=== PATIENT | female | born 2000 | race American Indian/Alaskan Native ===

== ENCOUNTER 2020-08-19 12:16 | Emergency (ER) | payer SELFPAY ==
[2020-08-19] MEDS ORDERED: SODIUM CHLORIDE 0.9% 1000 ML 1,000 ML IV ONE (12:46)
--- NOTE | 2020-08-19 12:50 | Emergency Department Report ---
ED Psych HPI - General Chief Complaint: Medical Clearance Stated Complaint: DECREASED APPETITE Time Seen by Provider: 08/19/20 12:43 Source: patient Mode of arrival: Stretcher Limitations: Altered Mental Status - History of Present Illness Initial Comments: Chief complaint: Refusing to eat HPI this is a 20-year-old female with history of psychosis who presents with sitter from [facility]. Patient refuses to eat or take medication for the last 3 to 4 days. Patient does not cooperate with history taking. However sitter at the bedside was able to give history. Patient refused Ensure medication. MD Complaint: altered mental status, other (Refusing to eat) -: Gradual, days(s) (3 to 4 days prior) Associated Psychiatric Symptoms: other (Altered behavior) Quality: constant Improves With: none Worsens With: none Context: other (Currently being treated at [facility]) - Related Data Allergies Allergy/AdvReac Type Severity Reaction Status Date / Time No Known Allergies Allergy Unverified 08/19/20 12:32 ED Review of Systems ROS: Stated complaint: DECREASED APPETITE Other details as noted in HPI Comment: Unobtainable due to pts medical conditions (Patient would not cooperate) ED Past Medical Hx - Past Medical History Previous Medical History?: Yes Additional medical history: unspecified psychosis - Surgical History Past Surgical History?: No - Family History Family history: other (Unable to obtain) - Social History Smoking Status: Unknown if ever smoked Substance Use Type: Other (Unable to obtain) ED Physical Exam - General Limitations: No Limitations General appearance: alert, in no apparent distress, other (Mumbling poor eye contact) - Head Head exam: Present: atraumatic, normocephalic - Eye Eye exam: Present: normal appearance - ENT ENT exam: Present: mucous membranes dry - Neck Neck exam: Present: normal inspection, full ROM - Respiratory Respiratory exam: Present: normal lung sounds bilaterally. Absent: respiratory distress, wheezes, rales, rhonchi - Cardiovascular Cardiovascular Exam: Present: regular rate, normal rhythm, normal heart sounds. Absent: systolic murmur, diastolic murmur, rubs, gallop - GI/Abdominal GI/Abdominal exam: Present: soft, normal bowel sounds. Absent: distended, tend erness, guarding, rebound - Extremities Exam Extremities exam: Present: normal inspection - Neurological Exam Neurological exam: Present: altered - Psychiatric Psychiatric exam: Present: depressed, flat affect - Skin Skin exam: Present: warm, dry, intact, normal color. Absent: rash ED Course Vital Signs 08/19/20 08/19/20 12:34 14:35 Pulse Rate 60 62 Respiratory 16 16 Rate Blood Pressure 126/62 Blood Pressure 120/68 [Left] O2 Sat by Pulse 100 100 Oximetry ED Medical Decision Making - Lab Data Result diagrams: 08/19/20 13:08 08/19/20 13:08 - Medical Decision Making Anorexia by choice, patient with communicate with the sitter. However she would not give any history to me CBC chemistry with normal limits. No evidence of kidney failure or metabolic abnormality. CBC chemistry within normal limits. Patient received IV fluid. She is discharged back [facility]. Critical care attestation.: If time is entered above; I have spent that time in minutes in the direct care of this critically ill patient, excluding procedure time. ED Disposition Clinical Impression: Anorexia, Psychosis, Dehydration Disposition: [id number]/TX-[id number] PSY HOSP/PSY UNIT Is pt being admited?: No Does the pt Need Aspirin: No Condition: Stable Instructions: Psychosis
[2020-08-19 13:43] LABS: Basophils # (Auto) 0.1 K/mm3 (0.0-0.1); Basophils % (Auto) 0.6 % (0.0-1.8); Eosinophils % (Auto) 0.4 % (0.0-4.3); Hematocrit 42.5 % (30.3-42.9); Hemoglobin 14.3 gm/dl (10.1-14.3); Lymphocytes % (Auto) 35.1 % (13.4-35.0); Mean Corpuscular HGB Conc 34 % (30-34); Mean Corpuscular Volume 97 fl (79-97); Monocytes # (Auto) 0.9 K/mm3 (0.0-0.8); Monocytes % (Auto) 11.2 % (0.0-7.3); Platelet Count 305 K/mm3 (140-440); Red Cell Distribution Width 13.6 % (13.2-15.2)
[2020-08-19 14:00] LABS: Alanine Aminotransferase 15 units/L (7-56); Albumin 4.9 g/dL (3.9-5); Blood Urea Nitrogen 11 mg/dL (7-17); Hemolysis Index 3
[2020-08-19 14:01] LABS: BUN/Creatinine Ratio 18
[2020-08-19 18:44] VITALS: BP 110/66
== END 2020-08-19 17:50 ==
LOC: ED 12:16
DX: F29 Unspecified psychosis not due to a substance or known physiological condition (principal); R63.0 Anorexia; E86.0 Dehydration
CPT/HCPCS: 36415; 80053; 82962; 84702; 85025; 96360; 99284; J7030